=== PATIENT | female | born 1965 | race Caucasian/White ===

== ENCOUNTER 2019-05-15 23:21 | Emergency (ER) | payer MEDICAID, OTHER ==
[~2019-05-15] VITALS: Ht 152.4 cm; Wt 76.2 kg
[2019-05-16 00:49] VITALS: BP 115/63
== END 2019-05-16 00:51 | disposition home or self-care (01) ==
LOC: ED 05-16 00:38
DX: L03.116 Cellulitis of left lower limb (principal); Z90.49 Acquired absence of other specified parts of digestive tract
CPT/HCPCS: 36415; 80053; 83605; 85025; 87040; 99283

== ENCOUNTER 2021-04-02 20:21 | Emergency (ER) | payer MEDICAID ==
[~2021-04-02] VITALS: Ht 154.9 cm; Wt 86.3 kg
[2021-04-02 20:29] VITALS: BP 141/84
--- NOTE | 2021-04-02 21:50 | NUR ---
PT WHEELED IN TO ROOM TRAUMA 2, C/O PAIN TO RIGHT KNEE POSTERIOR. WHEN THIS RN WENT TO EVAL THE PT, SHE WAS LYING IN BED ON HER SIDE WITH HER LEGS DRAWN UP UNDER HER LYING ON TOP OF THE "PAINFUL" KNEE. WHEN THIS WAS BROUGHT UP TO THE PT, SHE QUICKLY SHIFTED HER BODY AND COULDN'T FIND A SPOT TO LIE COMFORTABLY IN, BUT CONTINUED PURPOSEFUL MOVEMENT OF RIGHT LEG AND KNEE WITHOUT ISSUE, AND NO COMPLAINT, UNTIL RN WAS OUT OF ROOM. PT WALKED OUT OF ROOM, ASKING FOR A BATHROOM, AND SAID SHE COULD WALK. PT WALKED TO THE BACK BATHROOM.
--- NOTE | 2021-04-02 22:03 | NUR ---
PT WALKED OUT OF TRAUMA 2 ROOM, AGAIN AND ASKED FOR AN ICE PACK. PT NOW TEARY AND SAYING HER LEG HURTS A LOT, WHILE SHE HALF SITS ON THE STRETCHER WITH HER LEFT LEG DANGLING. TO SEE PT.
--- NOTE | 2021-04-02 22:22 | NUR ---
PT WALKED OUT OF ROOM AGAIN, SAYING SHE NEEDS TO SEE A DOCTOR IMMEDIATELY BECAUSE HER PAIN IS REALLY BAD. WHEN ASKED HOW BAD THE PAIN IS AND WHAT SHE RECEIVED LAST TIME FOR PAIN, PT ADVISED THE RN THAT SHE'S GOTTEN DILAUDID IN THE PAST AND THAT REALLY WORKED. 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
[2021-04-02] MEDS ORDERED: ACETAMINOPHEN 500 MG TABLET ONE (22:47)
[2021-04-02] MEDS ORDERED: KETOROLAC 30 MG/1 ML ONE (22:47)
--- NOTE | 2021-04-02 22:58 | NUR ---
TO SEE PT AND MED ORDERS RECEIVED. PT MEDICATED AND GIVEN F/U AND D/C INSTRUCTIONS WITH PRESCRIPTION TOO. PT V/U. AND AMBULATED TO DISCHARGE DESK.
[2021-04-02] MEDS ORDERED: ACETAMINOPHEN 500 MG TABLET PO ONE (23:00)
[2021-04-02] MEDS ORDERED: KETOROLAC 30 MG/1 ML IM ONE (23:00)
== END 2021-04-02 23:00 | disposition home or self-care (01) ==
LOC: ED 22:00
DX: M25.561 Pain in right knee (principal); Z90.89 Acquired absence of other organs; Z90.49 Acquired absence of other specified parts of digestive tract
CPT/HCPCS: 73564; 93971; 96372; 99284; J1885

== ENCOUNTER 2021-06-20 12:02 | Emergency (ER) | payer MEDICAID ==
[~2021-06-20] VITALS: Ht 152.4 cm; Wt 84.8 kg
--- NOTE | 2021-06-20 13:31 | NUR ---
no answer from lobby
--- NOTE | 2021-06-20 14:33 | NUR ---
cashier office: Pt ambulatory to room from [email or web address] at this time. Addendum: 06/20/21 at 1434 by [facility] cashier office: Pt to room via WC from [email or web address] at this time.
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
--- NOTE | 2021-06-20 15:03 | NUR ---
ERMD AT BEDSIDE FOR EVALUATION.
[2021-06-20] MEDS ORDERED: ONDANSETRON 2MG/ML, 2ML ONE (15:27)
[2021-06-20] MEDS ORDERED: MORPHINE SULFATE 4 MG/ML, 1ML ONE (15:27)
[2021-06-20] MEDS ORDERED: ONDANSETRON 2MG/ML, 2ML IVPush ONE (15:30)
[2021-06-20] MEDS ORDERED: SODIUM CHLORIDE FLUSH 10ML SYR IVF ONE (15:30)
[2021-06-20] MEDS ORDERED: MORPHINE SULFATE 4 MG/ML, 1ML IVPush PRN (15:30)
--- NOTE | 2021-06-20 15:37 | NUR ---
20 GAUGE IV STARTED RIGHT AC, PATIENT MEDICATED PER eMAR, CONNECTED TO MONITOR, VSS, CALL LIGHT WITHIN REACH.
--- NOTE | 2021-06-20 16:00 | NUR ---
PATINT TO IMAGING.
--- NOTE | 2021-06-20 16:20 | NUR ---
PATIENT BACK FROM IMAGING, REPORTS PAIN DOWN TO A 4/10, AND RELIEF FROM PAIN. CONNECTED TO MONITOR, VSS, CALL LIGHT WITHIN REACH.
--- NOTE | 2021-06-20 17:04 | NUR ---
ERMD AT BEDSIDE TO DISCUSS POC.
[2021-06-20 17:23] VITALS: BP 134/77
--- NOTE | 2021-06-20 17:37 | NUR ---
IV removed with tip intact. Patient given discharge instructions prescription and they have confirmed that they understand the instructions. Patient ambulatory with steady gait. NAD, all questions answered appropriately, denies additional needs at this time. No personal belongings left in room after discharge.
== END 2021-06-20 17:38 | disposition home or self-care (01) ==
LOC: ED 15:53
DX: S16.1XXA Strain of muscle, fascia and tendon at neck level, initial encounter (principal); S33.5XXA Sprain of ligaments of lumbar spine, initial encounter; S23.3XXA Sprain of ligaments of thoracic spine, initial encounter; X58.XXXA Exposure to other specified factors, initial encounter; Y93.89 Activity, other specified; Y92.89 Other specified places as the place of occurrence of the external cause; Y99.8 Other external cause status
CPT/HCPCS: 70450; 72072; 72110; 72125; 72220; 96374; 96375; 99285; J2270; J2405